=== PATIENT | male | born 1995 | race African-American/Black ===

== ENCOUNTER 2017-01-31 00:36 | Emergency (ER) | payer SELFPAY ==
[2017-01-31] MEDS ORDERED: PREDNISONE20 M1 PO (01:47)
[2017-01-31] MEDS ORDERED: AEROCHAMBER WI1 EACH MC (01:47)
[2017-01-31] MEDS ORDERED: VENTOLIN HFA18 G2 PO (01:47)
== END 2017-01-31 02:07 ==
LOC: EDMED 00:36
DX: J45.901 Unspecified asthma with (acute) exacerbation (principal); F17.200 Nicotine dependence, unspecified, uncomplicated
CPT/HCPCS: J7512